=== PATIENT | male | born 1990 | race Hispanic/Latino ===

== ENCOUNTER 2019-03-13 17:33 | Emergency (ER) | payer OTHER, SELFPAY | END 2019-03-13 18:31 | disposition home or self-care (01) | LOC: EDH 17:33 | DX: S39.011A Strain of muscle, fascia and tendon of abdomen, initial encounter (principal); Z72.0 Tobacco use; X58.XXXA Exposure to other specified factors, initial encounter; Y93.89 Activity, other specified; Y92.89 Other specified places as the place of occurrence of the external cause; Y99.8 Other external cause status | CPT/HCPCS: 99281 ==

== ENCOUNTER 2022-06-09 14:52 | Emergency (ER) | payer OTHER ==
[~2022-06-09] VITALS: Ht 175.3 cm; Wt 89.8 kg
[2022-06-09 15:18] LABS: BASOPHILS % (AUTO) 1.5 % (0.0-5.0); EOSINOPHILS % (AUTO) 3.4 % (0.0-8.0); HEMATOCRIT 45.1 % (42-54); LYMPHOCYTES % (AUTO) 42.2 % (21.0-51.0); MEAN CORPUSCULAR HEMOGLOBIN 29.9 pg (27.0-33.0); MEAN CORPUSCULAR HGB CONC 33.7 g/dL (32.0-36.0); MEAN CORPUSCULAR VOLUME 88.8 fL (79-99); MONOCYTES % (AUTO) 8.4 % (3.0-13.0); NEUTROPHILS % (AUTO) 43.6 % (40.0-77.0); PLATELET COUNT (AUTO) 320 K/uL (130-400); RED BLOOD CELL COUNT(AUTO) 5.08 MIL/uL (4.50-6.20); WHITE BLOOD COUNT (AUTO) 9.1 K/uL (4.8-10.8)
[2022-06-09 15:27] LABS: CREATININE 1.2 mg/dL (0.5-1.5); POTASSIUM 4.1 mmol/L (3.5-5.1)
[2022-06-09 15:31] LABS: TOTAL PROTEIN, SERUM 7.8 g/dL (6.0-8.3)
[2022-06-09 15:40] LABS: BILIRUBIN,URINE MODERATE (NEGATIVE); COLOR,URINE YELLOW (YELLOW); GLUCOSE, URINE (UA) NEGATIVE (NEGATIVE); KETONES,URINE 5 mg/dL (NEGATIVE); LEUKOCYTE ESTERASE ,URINE NEGATIVE (NEGATIVE); NITRATE,URINE POSITIVE (NEGATIVE); OCCULT BLOOD,URINE NEGATIVE (NEGATIVE); PH,URINE 5.5 (5.0-8.0); PROTEIN,URINE 30 mg/dL (NEGATIVE)
[2022-06-09 15:47] LABS: APPEARANCE,URINE CLOUDY (CLEAR)
[2022-06-09] MEDS: KETOROLAC 30MG VIAL (30MG/ML) IM ONE (16:08)
[2022-06-09] MEDS: DEXAMETHASONE SOD PHOSPHATE 4 MG/ML 1ML VIAL IVP ONE (16:08)
[2022-06-09 16:20] LABS: BACTERIA,URINE Few /HPF (None Seen); RBC,URINE 0-1 /HPF (0-1); WBC,URINE 0-1 /HPF (0-1)
[2022-06-09 16:21] LABS: AMORPHOUS SEDIMENT,UR Moderate /LPF (None Seen); SQUAMOUS EPITHELIAL CELL,UR Rare /HPF (0-2)
[2022-06-09] MEDS ORDERED: NAPR500T6 PO (17:45)
[2022-06-09] MEDS ORDERED: PRED20TA3 PO (17:45)
[2022-06-09 17:47] VITALS: BP 129/86
== END 2022-06-09 17:55 | disposition home or self-care (01) ==
LOC: EDH 14:52
DX: M54.41 Lumbago with sciatica, right side (principal); Z79.1 Long term (current) use of non-steroidal anti-inflammatories (NSAID); Z79.52 Long term (current) use of systemic steroids
CPT/HCPCS: 99285; 96374; 72131; 80053; 85025; 87088; 81001; 36415; 96372; J1100; J1885

== ENCOUNTER 2023-06-29 00:20 | Emergency (ER) | payer OTHER ==
[~2023-06-29 00:20] MED LIST: NAPR500T6 PO; PRED20TA3 PO
[2023-06-29] MEDS ORDERED: FAMOTIDINE 20MG VIAL IV ONE (00:30)
[2023-06-29] MEDS ORDERED: HYDROXYZINE 25 MG TABLET PO ONE (00:30)
[2023-06-29 00:56] LABS: BASOPHILS # (AUTO) 0.12 K/uL (0.00-0.20); BASOPHILS % (AUTO) 1.2 % (0.0-5.0); EOSINOPHILS % (AUTO) 3.1 % (0.0-8.0); HEMATOCRIT 43.2 % (42-54); LYMPHOCYTES # (AUTO) 3.1 K/uL (1.0-4.8); LYMPHOCYTES % (AUTO) 31.6 % (21.0-51.0); MEAN CORPUSCULAR HEMOGLOBIN 30.5 pg (27.0-33.0); MEAN CORPUSCULAR VOLUME 89.6 fL (79-99); MONOCYTES # (AUTO) 0.9 K/uL (0.1-1.0); MONOCYTES % (AUTO) 9.1 % (3.0-13.0); NEUTROPHILS # (AUTO) 5.3 K/uL (1.8-7.7); PLATELET COUNT (AUTO) 312 K/uL (130-400); RED BLOOD CELL COUNT(AUTO) 4.82 MIL/uL (4.50-6.20); RED CELL DISTRIBUTION WIDTH 11.2 % (11.0-15.5); WHITE BLOOD COUNT (AUTO) 9.8 K/uL (4.8-10.8)
[2023-06-29 01:05] LABS: CREATININE 0.9 mg/dL (0.5-1.5); POTASSIUM 4.1 mmol/L (3.5-5.1)
[2023-06-29 01:10] LABS: ALBUMIN 3.8 g/dL (3.5-5.0); BILIRUBIN,TOTAL 0.9 mg/dL (0.2-1.0); TOTAL PROTEIN, SERUM 7.6 g/dL (6.0-8.3)
[2023-06-29 02:25] LABS: APPEARANCE,URINE CLEAR (CLEAR); BILIRUBIN,URINE NEGATIVE (NEGATIVE); COLOR,URINE COLORLESS (YELLOW); GLUCOSE, URINE (UA) NEGATIVE (NEGATIVE); KETONES,URINE NEGATIVE (NEGATIVE); LEUKOCYTE ESTERASE ,URINE NEGATIVE Leu/uL (NEGATIVE); NITRATE,URINE NEGATIVE (NEGATIVE); OCCULT BLOOD,URINE NEGATIVE (NEGATIVE); PH,URINE 5.5 (5.0-8.0); PROTEIN,URINE NEGATIVE (NEGATIVE); UROBILINOGEN,URINE 0.2 mg/dL (0.2-1.0)
[2023-06-29 02:31] LABS: ADD UA MICROSCOPIC NO; AMPHET/METH SCREEN,URINE NEGATIVE (NEGATIVE); BARBITURATE SCREEN, URINE NEGATIVE (NEGATIVE); BENZODIAZEPINES SCREEN,URINE NEGATIVE (NEGATIVE); CANNABINOID SCREEN,URINE NEGATIVE (NEGATIVE); COCAINE SCREEN,URINE NEGATIVE (NEGATIVE); OPIATE SCREEN,URINE NEGATIVE (NEGATIVE); PHENCYCLIDINE SCREEN,URINE NEGATIVE (NEGATIVE)
[2023-06-29] MEDS ORDERED: HYDR50CA PO (02:43)
[2023-06-29] MEDS ORDERED: FAMO-136 PO (02:43)
[2023-06-29 03:33] VITALS: BP 129/82; PULSE 73; RESP 17; O2SAT 97
== END 2023-06-29 03:41 | disposition home or self-care (01) ==
LOC: EDH 00:20
DX: K21.9 Gastro-esophageal reflux disease without esophagitis (principal); F41.9 Anxiety disorder, unspecified
CPT/HCPCS: 99285; 96374; 71045; 84484; 80053; 80305; 83690; 85025; 36415; 93005; 81003; J3490

== ENCOUNTER 2023-11-22 22:32 | Emergency (ER) | payer OTHER ==
[~2023-11-22] VITALS: Ht 175.3 cm; Wt 94.3 kg
[2023-11-22] MEDS: 0.9%NACL 1000ML 1,000 ML IV ONE (00:05)
[~2023-11-22 22:32] MED LIST changes: +FAMO-136 PO; +HYDR50CA PO
[2023-11-22] MEDS ORDERED: MORPHINE 4 MG SYG IVP ONE (23:30)
[2023-11-22] MEDS ORDERED: ONDANSETRON 4MG INJ IVP ONE (23:30)
[2023-11-22 23:42] LABS: BASOPHILS # (AUTO) 0.22 K/uL (0.00-0.20); BASOPHILS % (AUTO) 1.1 % (0.0-5.0); EOSINOPHILS # (AUTO) 0.38 K/uL (0.00-0.70); HEMATOCRIT 42.4 % (42-54); IMMATURE GRANULOCYTE ABSOLUTE 0.27 K/uL (0-1); LYMPHOCYTES # (AUTO) 3.1 K/uL (1.0-4.8); MEAN CORPUSCULAR HEMOGLOBIN 30.6 pg (27.0-33.0); MEAN CORPUSCULAR HGB CONC 33.5 g/dL (32.0-36.0); MEAN CORPUSCULAR VOLUME 91.4 fL (79-99); MONOCYTES % (AUTO) 10.5 % (3.0-13.0); NEUTROPHILS # (AUTO) 13.2 K/uL (1.8-7.7); PLATELET COUNT (AUTO) 500 K/uL (130-400); RED BLOOD CELL COUNT(AUTO) 4.64 MIL/uL (4.50-6.20); WHITE BLOOD COUNT (AUTO) 19.2 K/uL (4.8-10.8)
[2023-11-22 23:58] LABS: CREATININE 1.2 mg/dL (0.5-1.5); POTASSIUM 3.9 mmol/L (3.5-5.1)
[2023-11-23 00:03] LABS: ALBUMIN 3.3 g/dL (3.5-5.0); BILIRUBIN,TOTAL 0.8 mg/dL (0.2-1.0); TOTAL PROTEIN, SERUM 8.6 g/dL (6.0-8.3)
[2023-11-23] MEDS ORDERED: CLIN-141 PO (00:49)
[2023-11-23] MEDS: LIDOCAINE HCL-MPF 2% 5ML VIAL ONE (00:56)
[2023-11-23] MEDS: CLINDAMYCIN IVPB 600MG/50ML 50 ML IV SCH (00:59)
[2023-11-23] MEDS: LIDOCAINE 2%-EPI 1:200,000 20 ML VIAL IJ SCH (01:01)
[2023-11-23 01:33] VITALS: BP 136/82; PULSE 92; RESP 16; O2SAT 97
== END 2023-11-23 01:45 | disposition home or self-care (01) ==
LOC: EDH 22:32
DX: L02.31 Cutaneous abscess of buttock (principal); Z79.899 Other long term (current) drug therapy; Z98.890 Other specified postprocedural states
CPT/HCPCS: 99285; 74176; 80053; 85025; 87040 ×2; 83605; 36415; 96365; 10060; J7030 ×2; J3490 ×4